=== PATIENT | female | born 1985 | race Caucasian/White ===

== ENCOUNTER 2018-04-26 18:51 | Emergency (ER) | payer OTHER ==
[2018-04-26] MEDS ORDERED: Ibuprofen 200 MG TAB ONE (19:17)
[2018-04-26] MEDS ORDERED: Cyclobenzaprine 10 MG TAB ONE (19:17)
== END 2018-04-26 19:28 | disposition home or self-care (01) ==
LOC: SCSER 18:51
DX: M54.2 Cervicalgia (principal); V43.52XA Car driver injured in collision with other type car in traffic accident, initial encounter
CPT/HCPCS: 99283